=== PATIENT | female | born 1955 | race Caucasian/White ===

== ENCOUNTER 2017-09-24 21:24 | Inpatient (IN) | payer BC ==
[~2017-09-24] VITALS: Ht 177.8 cm; Wt 54.0 kg
[2017-09-24 21:48] VITALS: Ht 177.8 cm; Wt 54.0 kg
[2017-09-25 05:12] LABS: BASOPHIL % 0.6 % (0-2); PLATELET COUNT 206 x10^3mcL (130-400); RED CELL DISTRIBUTION WIDTH 14.2 % (11.5-14.5)
[2017-09-25 05:25] LABS: CALCIUM 8.2 mg/dL (8.5-10.1); CARBON DIOXIDE 25.8 mmol/L (21-32); CREATININE SERUM 1.2 mg/dL (0.6-1.0); POTASSIUM SERUM 3.9 mmol/L (3.5-5.1)
[2017-09-25 05:32] LABS: ALBUMIN 2.4 g/dL (3.4-5.0); BILIRUBIN TOTAL 0.7 mg/dL (0.20-1.00); TOTAL PROTEIN, SERUM 6.9 g/dL (6.4-8.2)
[2017-09-25] MEDS ORDERED: PROAIR HFA8.5 GM IH (06:53)
[2017-09-25] MEDS ORDERED: ALBUTEROL1.25 MG/3 NEB (06:54)
[2017-09-25] MEDS ORDERED: ACYCLOVIR200 MG PO (06:54)
[2017-09-25] MEDS ORDERED: PROMETRIUM100 MG PO (06:54)
[2017-09-25 08:01] LABS: MAGNESIUM 3.1 mg/dL (1.8-2.4); PHOSPHOROUS 3.1 mg/dL (2.5-4.9)
[2017-09-25 08:12] LABS: FREE T4 1.44 ng/dL (0.76-1.46); FREE THYROXINE INDEX 2.5 ug/dL (1.4-4.5)
[2017-09-25 08:19] LABS: T3 TOTAL 0.47 ng/mL
[2017-09-25 08:21] LABS: TRIGLYCERIDES 112 mg/dL (<150)
[2017-09-25 08:46] VITALS: BP 106/73
[2017-09-25] MEDS ORDERED: QVAR0.08 MG/Ac IH (10:23)
[2017-09-25] MEDS ORDERED: ACYCLOVIR400 MG PO (10:29)
[2017-09-25] MEDS ORDERED: XOPENEX1.25 MG/3 INH (10:30)
[2017-09-25] MEDS ORDERED: SPIRIVA18 MC1 INH (10:38)
[2017-09-25 11:50] LABS: UA SPECIFIC GRAVITY 1.025 (1.005-1.035); microscopic required? YES; urine erythrocyte TRACE (NEGATIVE)
[2017-09-25 11:53] VITALS: BP 95/53
[2017-09-25 12:09] LABS: AMPHETAMINE QUAL UR NONE DETECTED (NEG <=1000)
[2017-09-25 12:56] VITALS: BP 106/73
[2017-09-25 17:40] VITALS: BP 114/69
[2017-09-25 21:37] VITALS: BP 105/53
[2017-09-26 05:46] VITALS: BP 106/62
[2017-09-26 06:24] LABS: BASOPHIL % 0.2 % (0-2); PLATELET COUNT 216 x10^3mcL (130-400); RED CELL DISTRIBUTION WIDTH 14.1 % (11.5-14.5)
[2017-09-26 06:47] LABS: CALCIUM 7.1 mg/dL (8.5-10.1); CARBON DIOXIDE 23.9 mmol/L (21-32); CHLORIDE SERUM 106 mmol/L (98-107); CREATININE SERUM 0.7 mg/dL (0.6-1.0); GFR1 > 60 mL/min; GLUCOSE SERUM 137 mg/dL (74-106); MAGNESIUM 2.7 mg/dL (1.8-2.4); PHOSPHOROUS 2.6 mg/dL (2.5-4.9); POTASSIUM SERUM 4.9 mmol/L (3.5-5.1); SODIUM SERUM 136 mmol/L (136-145)
[2017-09-26 10:00] VITALS: BP 107/47
[2017-09-26 12:53] LABS: RED BLOOD CELLS 2.91 M/mm3 (4.10-5.10)
[2017-09-26 13:25] VITALS: BP 107/36
[2017-09-26 17:40] VITALS: BP 99/52
[2017-09-26 21:01] VITALS: BP 112/61
[2017-09-27 05:40] VITALS: BP 100/53
[2017-09-27 07:22] LABS: BASOPHIL % 0.4 % (0-2); PLATELET COUNT 271 x10^3mcL (130-400); RED CELL DISTRIBUTION WIDTH 14.1 % (11.5-14.5)
[2017-09-27 07:35] LABS: CALCIUM 7.6 mg/dL (8.5-10.1); CHLORIDE SERUM 106 mmol/L (98-107); CREATININE SERUM 0.7 mg/dL (0.6-1.0); GFR1 > 60 mL/min; GLUCOSE SERUM 122 mg/dL (74-106); MAGNESIUM 2.3 mg/dL (1.8-2.4); PHOSPHOROUS 3.4 mg/dL (2.5-4.9); POTASSIUM SERUM 4.8 mmol/L (3.5-5.1); SODIUM SERUM 138 mmol/L (136-145)
[2017-09-27 08:46] LABS: IRON 31 ug/dL (50-170); TOTAL IRON BINDING CAPACITY 125 ug/dL (250-450)
[2017-09-27 09:34] VITALS: BP 106/62
[2017-09-27 14:29] VITALS: BP 101/56
[2017-09-27 16:36] VITALS: BP 118/69
[2017-09-27 19:50] VITALS: BP 121/73
[2017-09-27 20:42] VITALS: BP 127/55
[2017-09-28 05:47] VITALS: BP 104/71
[2017-09-28 06:35] LABS: BASOPHIL % 0.5 % (0-2); PLATELET COUNT 291 x10^3mcL (130-400); RED CELL DISTRIBUTION WIDTH 14.2 % (11.5-14.5)
[2017-09-28 06:54] LABS: CALCIUM 7.8 mg/dL (8.5-10.1); CARBON DIOXIDE 28.8 mmol/L (21-32); CHLORIDE SERUM 105 mmol/L (98-107); CREATININE SERUM 0.7 mg/dL (0.6-1.0); GFR1 > 60 mL/min; GLUCOSE SERUM 103 mg/dL (74-106); MAGNESIUM 2.3 mg/dL (1.8-2.4); PHOSPHOROUS 3.1 mg/dL (2.5-4.9); POTASSIUM SERUM 5.1 mmol/L (3.5-5.1); SODIUM SERUM 139 mmol/L (136-145)
[2017-09-28 09:11] VITALS: BP 123/63
[2017-09-28 14:21] VITALS: BP 120/66
[2017-09-28] MEDS ORDERED: LEVAQUIN750 MG PO (14:53)
[2017-09-28] MEDS ORDERED: LAC PO (14:54)
[2017-09-28 15:29] VITALS: BP 120/66
[2017-09-28 21:40] VITALS: BP 110/56
[2017-09-29 06:10] VITALS: BP 93/48
[2017-09-29 06:55] LABS: BASOPHIL % 0.4 % (0-2); PLATELET COUNT 361 x10^3mcL (130-400); RED CELL DISTRIBUTION WIDTH 14.1 % (11.5-14.5)
[2017-09-29 07:21] LABS: CALCIUM 8.7 mg/dL (8.5-10.1); CARBON DIOXIDE 28.1 mmol/L (21-32); CHLORIDE SERUM 101 mmol/L (98-107); CREATININE SERUM 0.9 mg/dL (0.6-1.0); GFR1 > 60 mL/min; GLUCOSE SERUM 134 mg/dL (74-106); MAGNESIUM 2.2 mg/dL (1.8-2.4); PHOSPHOROUS 4.4 mg/dL (2.5-4.9); POTASSIUM SERUM 4.7 mmol/L (3.5-5.1); SODIUM SERUM 132 mmol/L (136-145)
[2017-09-29 09:36] VITALS: BP 103/59
[2017-09-29 13:10] VITALS: BP 106/56
[2017-09-29] MEDS ORDERED: CLEOCIN HCL300 MG PO (16:26)
[2017-09-29 16:27] VITALS: BP 106/56
[2017-09-29] MEDS ORDERED: PREDNISONE10 MG PO (16:51)
[2017-09-29] MEDS ORDERED: LEVAQUIN750 MG PO (16:51)
[2017-09-29] MEDS ORDERED: XOPENEX1.25 MG/3 INH (16:51)
== END 2017-09-29 17:32 | disposition home or self-care (01) | DRG 177 ==
LOC: ED 21:24 → DU 09-25 06:40 → MU 09-29 07:43
PROVIDERS: Emergency Medicine; Family Medicine; Student in an Organized Health Care Education/Training Program
DX: J69.0 Pneumonitis due to inhalation of food and vomit (principal); E43 Unspecified severe protein-calorie malnutrition; J96.21 Acute and chronic respiratory failure with hypoxia; C85.80 Other specified types of non-Hodgkin lymphoma, unspecified site; Z68.1 Body mass index [BMI] 19.9 or less, adult; E87.1 Hypo-osmolality and hyponatremia; N39.0 Urinary tract infection, site not specified; E83.41 Hypermagnesemia; J44.9 Chronic obstructive pulmonary disease, unspecified; Q82.8 Other specified congenital malformations of skin; M81.0 Age-related osteoporosis without current pathological fracture; R73.03 Prediabetes; E78.5 Hyperlipidemia, unspecified; D64.9 Anemia, unspecified; E83.51 Hypocalcemia; J70.3 Chronic drug-induced interstitial lung disorders; T45.1X5A Adverse effect of antineoplastic and immunosuppressive drugs, initial encounter; Y92.89 Other specified places as the place of occurrence of the external cause
CPT/HCPCS: 82962; 83880; 84439; 87804; 90732; 94150; J0696; J1644; J1956; J2543; J2920; J2930; J3490; J7030; J7620; J7626; Q0092; Q0163

== ENCOUNTER 2017-10-12 17:13 | Emergency (ER) | payer BC ==
[~2017-10-12] VITALS: Ht 177.8 cm; Wt 52.6 kg
[~2017-10-12 17:13] MED LIST: ACYCLOVIR200 MG PO; ACYCLOVIR400 MG PO; ALBUTEROL1.25 MG/3 NEB; CLEOCIN HCL300 MG PO; LAC PO; LEVAQUIN750 MG PO; PREDNISONE10 MG PO; PROAIR HFA8.5 GM IH; PROMETRIUM100 MG PO; QVAR0.08 MG/Ac IH; SPIRIVA18 MC1 INH; XOPENEX1.25 MG/3 INH
[2017-10-12 17:16] VITALS: Ht 177.8 cm; Wt 52.6 kg
[2017-10-12 19:10] VITALS: BP 121/67
== END 2017-10-12 19:10 | disposition home or self-care (01) ==
LOC: ED 17:13
DX: J45.901 Unspecified asthma with (acute) exacerbation (principal)
CPT/HCPCS: J2930; J7613; J7644